=== PATIENT | male | born 1970 | race Two or more races ===

== ENCOUNTER 2025-02-21 14:44 | Emergency (ER) | payer BC ==
[~2025-02-21] VITALS: Ht 167.6 cm; Wt 73.0 kg
[2025-02-21] MEDS ORDERED: COZAAR50 MG (15:41)
[2025-02-21] MEDS ORDERED: CLINDAMYCIN PHOSPHATE 150 MG/ML (600mg) IM STA (17:09)
[2025-02-21] MEDS ORDERED: TETANUS & DIPHTHERIA TOX,ADULT 0.5 ML VIAL IM STA (17:09)
[2025-02-21] MEDS ORDERED: CLINDAMYCIN PHOSPHATE 150 MG/ML (300mg) ONE (17:10)
[2025-02-21] MEDS ORDERED: DIPHTH,PERTUSS(ACELL),TET VAC 0.5 ML SYRINGE IM ONE (17:11)
[2025-02-21] MEDS ORDERED: LIDOCAINE HCL 1% 10ML VIAL ONE (17:11)
[2025-02-21] MEDS ORDERED: DIPHTH,PERTUSS(ACELL),TET VAC 0.5 ML SYRINGE IM STA (17:13)
== END 2025-02-21 17:47 | disposition home or self-care (01) ==
LOC: ER 14:44
DX: S91.322A Laceration with foreign body, left foot, initial encounter (principal); W26.8XXA Contact with other sharp object(s), not elsewhere classified, initial encounter; Y93.89 Activity, other specified; Y92.89 Other specified places as the place of occurrence of the external cause; Z88.0 Allergy status to penicillin